=== PATIENT | male | born 1975 | race Caucasian/White ===

== ENCOUNTER 2021-05-09 17:20 | Emergency (ER) | payer OTHER ==
[~2021-05-09] VITALS: Ht 175.3 cm; Wt 83.9 kg
[2021-05-09] MEDS ORDERED: CEPHALEXIN500 MG PO (21:33)
== END 2021-05-09 21:59 | disposition home or self-care (01) ==
LOC: ED 17:20
DX: L03.116 Cellulitis of left lower limb (principal); L03.115 Cellulitis of right lower limb; M10.9 Gout, unspecified
CPT/HCPCS: 99283